=== PATIENT | male | born 1975 | race Caucasian/White ===

== ENCOUNTER 2018-10-07 16:12 | Emergency (ER) | payer OTHER, BC ==
[2018-10-07] MEDS ORDERED: Lidocaine 1% 50 ML MDV INJECT ONE (16:59)
[2018-10-07] MEDS ORDERED: Diphtheria,Pertussis(Acell),Tetanus Vaccine 0.5 ML Syringe IM ONE (16:59)
--- NOTE | 2018-10-07 17:00 | EDM.PDOC ---
ED HPI GENERAL MEDICAL PROBLEM - General Chief Complaint: Eye Problems Stated Complaint: HEAD INJURY Time Seen by Provider: 10/07/18 16:40 Source of Information: Reports: Patient, RN Notes Reviewed - History of Present Illness INITIAL COMMENTS - FREE TEXT/NARRATIVE: 43-year-old male got struck with some type of metal or piece of chain. He and his fellow workers were attempting to move a heavy object using some type of winch or chain withchain tighteners, something broke and then part of this chain apparatus struck his left face. He was wearing helmet with face shield. The goggles were knocked off of his face. Suffered a laceration injury to his left upper eyelid. There was a fair amount of bleeding initially but controlled with pressure. Left Face/Facial Pain Score (Numeric/FACES): 8 - Related Data Allergies Allergy/AdvReac Type Severity Reaction Status Date / Time No Known Allergies Allergy Verified 10/07/18 16:28 Past Medical History - Past Health History Medical/Surgical History: Denies Medical/Surgical History Social & Family History - Tobacco Use Smoking Status *Q: Never Smoker - Recreational Drug Use Recreational Drug Use: No ED ROS GENERAL - Review of Systems Review Of Systems: See Below Constitutional: Reports: No Symptoms HEENT: Denies: Dental Pain, Ear Pain, Eye Discharge, Eye Pain, Nose Pain Respiratory: Denies: Shortness of Breath Cardiovascular: Denies: Chest Pain GI/Abdominal: Denies: Nausea, Vomiting Musculoskeletal: Denies: Neck Pain Neurological: Denies: Dizziness, Headache, Numbness, Tingling, Weakness ED EXAM GENERAL W FULL EYE - Physical Exam Exam: See Below General Appearance: Alert, No Apparent Distress Eye Exam: Bilateral Eye: PERRL, Other (There is no visible injury to the globe of the left eye, there is no unusual area of conjunctival injection, blood, swelling or bruising visible. Both eyes are briskly reactive. Struck the motion is conjugate.) Conjunctiva & Sclera: Bilateral: Normal Appearance Cornea Exam: Bilateral: Normal Appearance Extraocular Movements: Bilateral: Intact Anterior Chamber: Bilateral: Normal Appearance Head: Other (There is bruising and swelling both superior lateral and inferior to the left orbit, no bony tenderness, very small superficial laceration of the left upper eyelid measuring less than 1 cm in length, non-gaping.) Neck: Normal Inspection, Supple Respiratory/Chest: No Respiratory Distress Neurological: Alert, Oriented Skin Exam: Warm, Dry, Normal Color Course - Vital Signs Last Recorded V/S: Last Vital Signs Temp 98.7 F 10/07/18 16:22 Pulse 88 10/07/18 16:22 Resp 17 10/07/18 16:22 BP 151/94 H 10/07/18 16:22 Pulse Ox 99 10/07/18 16:22 - Orders/Labs/Meds Orders: Active Orders 24 hr Category Date Time Status Vaccines to be Administered [RC] PER UNIT ROUTINE Care 10/07/18 17:00 Active Meds: Medications Discontinued Medications Generic Name Dose Route Start Last Admin Trade Name Freq PRN Reason Stop Dose Admin Diphtheria/Tetanus/Acell Pertussis 0.5 ml 10/07/18 16:59 10/07/18 17:24 Adacel IM 10/07/18 17:00 0.5 ml .ONCE ONE Administration Lidocaine HCl 50 ml 10/07/18 16:59 Xylocaine 1% INJECT 10/07/18 17:00 ONETIME ONE Departure - Departure Time of Disposition: 17:35 Disposition: Home, Self-Care 01 Condition: Fair Clinical Impression: Contusion of face Qualifiers: Encounter type: initial encounter Qualified Code(s): S00.83XA - Contusion of other part of head, initial encounter Eyelid laceration Qualifiers: Encounter type: initial encounter Laterality: left Qualified Code(s): S01.112A - Laceration without foreign body of left eyelid and periocular area, initial encounter - Discharge Information Instructions: Contusion, [id number], Laceration Care, Adult, [id number] Forms: ED Department Discharge Additional Instructions: Ice packs and elevation as needed for swelling, there is already bruising developing around your left eye, that will worsen over the next day or 2 and than take about 8-10 days to go away. Tylenol every 6-8 hours if needed for discomfort. The laceration of your left upper eyelid is very small, shallow and non-gaping, stitches not required. Apply a small amount of antibiotic ointment 2 -3 times daily. Have Rechecked any sign of infection. Return to ED as needed if symptoms worsening in any way. Follow up with your regular eye doctor as needed. - My Orders Last 24 Hours: My Active Orders 10/07/18 17:00 Vaccines to be Administered [RC] PER UNIT ROUTINE - Assessment/Plan Last 24 Hours: My Active Orders 10/07/18 17:00 Vaccines to be Administered [RC] PER UNIT ROUTINE
== END 2018-10-07 17:45 | disposition home or self-care (01) ==
LOC: JD.ED 16:12
DX: S01.112A Laceration without foreign body of left eyelid and periocular area, initial encounter (principal); Z23 Encounter for immunization; W22.8XXA Striking against or struck by other objects, initial encounter
CPT/HCPCS: 90471; 90700; 99282; 99283

== ENCOUNTER 2020-01-12 16:25 | Emergency (ER) | payer SELFPAY ==
[2020-01-12] MEDS ORDERED: Sodium Chloride 0.9% 10 ML Syringe FLUSH PRN ×2 (16:46→16:50)
[2020-01-12] MEDS ORDERED: HYDROmorphone 1 MG/ML Syringe IVPUSH ONE (16:48)
[2020-01-12] MEDS ORDERED: Iopamidol 755 Mg/ML 100 ML Bottle IVPUSH ONE (16:50)
[2020-01-12] MEDS ORDERED: Sodium Chloride 0.9% 45 ML IV SCH (17:00)
--- NOTE | 2020-01-12 18:02 | CT ---
CT chest Technique: Multiple axial sections through the chest were obtained. Intravenous contrast was utilized. Study performed as a pulmonary angiogram protocol. Comparison: No prior chest imaging. Findings: Pulmonary arteries are not well opacified. No filling defects are seen within the main or segmental branches. Smaller subsegmental pulmonary emboli could easily be missed. Thoracic aorta shows no aneurysm. No dissection is seen. Visualized upper abdominal structures shows nothing acute. No pericardial thickening is seen. Mild coronary artery calcification appears to be present. Mediastinum and hilar region show no adenopathy. Areas of parenchymal density are noted within both lung bases which are worse on the left side. Uncertain how much of this could represent atelectasis versus pneumonia if patient has infectious symptoms. Upper lungs are clear. Very small left-sided pleural effusion is seen. Impression: 1. Suboptimal pulmonary artery opacification. No larger pulmonary emboli within the main or segmental branches are seen. Smaller subsegmental pulmonary emboli could easily be missed. 2. Minimal left-sided pleural effusion. 3. Parenchymal densities within both lung bases, worse on the left side. As mentioned above, uncertain how much of this represents pneumonia versus atelectasis. 4. No other acute finding is appreciated. Diagnostic code #3 This report was dictated in MDT
--- NOTE | 2020-01-12 18:10 | EDM.PDOC ---
ED HPI GENERAL MEDICAL PROBLEM - General Chief Complaint: Chest Pain Stated Complaint: CHEST PAIN X 2 DAYS Time Seen by Provider: 01/12/20 16:37 Source of Information: Reports: Patient History Limitations: Reports: No Limitations - History of Present Illness INITIAL COMMENTS - FREE TEXT/NARRATIVE: The patient presents with left sided chest pain and shortness of breath. This has been going on since yesterday. He says he has been out late for a few nights. He went to bed early Sunday morning feeling fine and then Sunday he woke up with the pain in the left chest and in his stomach at times. The pain did come and go but no it is more constant. He has no fever, chills , cough, congestion, runny nose, nausea or vomiting. He has no history of heart problems. He does not smoke. He has no history of hypertension, hypercholesterolemia or diabetes. He was told at one time he may have a murmur. He does have some shortness of breath at times. Onset: Gradual Duration: Day(s): (Yesterday) Location: Reports: Chest Quality: Reports: Sharp Severity: Severe Improves with: Reports: Immobilization Worsens with: Reports: Movement Context: Denies: Trauma Associated Symptoms: Reports: Chest Pain, Shortness of Breath. Denies: Cough, Fever/Chills, Headaches, Nausea/Vomiting Left Chest Pain Score (Numeric/FACES): 8 - Related Data Allergies Allergy/AdvReac Type Severity Reaction Status Date / Time No Known Allergies Allergy Verified 01/12/20 16:38 Home Meds: Home Meds Azithromycin [Zithromax] 250 mg PO DAILY #6 tab 01/12/20 [Rx] Hydrocodone/Acetaminophen [Hydrocodone-Acetamin 5-325 mg] 1 - 2 each PO Q6HR PRN #15 tablet 01/12/20 [Rx] Past Medical History - Past Health History Medical/Surgical History: Denies Medical/Surgical History Cardiovascular History: Reports: Heart Murmur - Past Surgical History GI Surgical History: Reports: Hernia Repair/Other Social & Family History - Tobacco Use Smoking Status *Q: Never Smoker Second Hand Smoke Exposure: No - Caffeine Use Caffeine Use: Reports: None - Recreational Drug Use Recreational Drug Use: No ED ROS GENERAL - Review of Systems Review Of Systems: See Below Constitutional: Reports: No Symptoms HEENT: Reports: No Symptoms Respiratory: Reports: Shortness of Breath Cardiovascular: Reports: Chest Pain Endocrine: Reports: No Symptoms GI/Abdominal: Reports: Abdominal Pain. Denies: Nausea, Vomiting : Reports: No Symptoms Musculoskeletal: Reports: No Symptoms Skin: Reports: No Symptoms ED EXAM, GENERAL - Physical Exam Exam: See Below Exam Limited By: No Limitations General Appearance: Alert, No Apparent Distress Ears: Normal External Exam Nose: Normal Inspection Head: Atraumatic, Normocephalic Neck: Normal Inspection Respiratory/Chest: No Respiratory Distress, Lungs Clear, Normal Breath Sounds Cardiovascular: Regular Rate, Rhythm, No Edema, No Murmur GI/Abdominal: Soft, Non-Tender, No Organomegaly, No Mass Back Exam: Normal Inspection Extremities: Normal Inspection EKG INTERPRETATION EKG Date: 01/12/20 Time: 17:01 Rhythm: Other (Sinus tachycardia) Rate (Beats/Min): 117 [place]: Normal P-Wave: Present QRS: Normal ST-T: Normal QT: Normal Course - Vital Signs Last Recorded V/S: Last Vital Signs Temp 99.5 F 01/12/20 16:35 Pulse 122 H 01/12/20 16:35 Resp 14 01/12/20 16:35 BP 160/104 H 01/12/20 16:35 Pulse Ox 95 01/12/20 16:35 - Orders/Labs/Meds Orders: Active Orders 24 hr Category Date Time Status Cardiac Monitoring [RC] . DIRECTED Care 01/12/20 16:46 Active EKG Documentation Completion [RC] STAT Care 01/12/20 16:47 Active Peripheral IV Care [RC] . DIRECTED Care 01/12/20 16:47 Active CORONAVIRUS COVID-19 PCR [facility] 01/12/20 18:31 Ordered Sodium Chloride 0.9% [Normal Saline] 45 ml Med 01/12/20 17:00 Active IV ASDIRECTED Sodium Chloride 0.9% [Saline Flush] Med 01/12/20 16:46 Active 10 ml FLUSH ASDIRECTED PRN Sodium Chloride 0.9% [Saline Flush] Med 01/12/20 16:50 Active 10 ml FLUSH ONETIME PRN Peripheral IV Insertion Adult [OM.PC] Stat Oth 01/12/20 16:46 Ordered Medication Orders Sodium Chloride (Normal Saline) 45 mls @ 40 mls/hr IV ASDIRECTED MINI Last Admin: 01/12/20 17:35 Dose: 40 mls/hr Sodium Chloride (Saline Flush) 10 ml FLUSH ASDIRECTED PRN PRN Reason: Keep Vein Open Last Admin: 01/12/20 17:35 Dose: 10 ml Sodium Chloride (Saline Flush) 10 ml FLUSH ONETIME PRN PRN Reason: Keep Vein Open Labs: Laboratory Tests 01/12/20 01/12/20 Range/Units 17:00 17:00 WBC 10.10 H (4.23-9.07) K/mm3 RBC 5.41 (4.63-6.08) M/mm3 Hgb 16.4 (13.7-17.5) gm/dl Hct 45.3 (40.1-51.0) % MCV 83.7 (79.0-92.2) fl MCH 30.3 (25.7-32.2) pg MCHC 36.2 H (32.2-35.5) g/dl RDW Std Deviation 35.9 (35.1-43.9) fL Plt Count 197 (163-337) K/mm3 MPV 9.5 (9.4-12.3) fl Neut % (Auto) 73.7 H (34.0-67.9) % Lymph % (Auto) 14.3 L (21.8-53.1) % Maury % (Auto) 11.0 (5.3-12.2) % Eos % (Auto) 0.5 L (0.8-7.0) Baso % (Auto) 0.2 (0.1-1.2) % Neut # (Auto) 7.45 H (1.78-5.38) K/mm3 Lymph # (Auto) 1.44 (1.32-3.57) K/mm3 Maury # (Auto) 1.11 H (0.30-0.82) K/mm3 Eos # (Auto) 0.05 (0.04-0.54) K/mm3 Baso # (Auto) 0.02 (0.01-0.08) K/mm3 Manual Slide Review Normal smear Sodium 138 (136-145) mEq/L Potassium 3.9 (3.5-5.1) mEq/L Chloride 101 (98-107) mEq/L Carbon Dioxide 26 (21-32) mEq/L Anion Gap 14.9 (5-15) BUN 14 (7-18) mg/dL Creatinine 1.3 (0.7-1.3) mg/dL Est Cr Clr Drug Dosing 80.42 mL/min Estimated GFR (MDRD) > 60 (>60) mL/min BUN/Creatinine Ratio 10.8 L (14-18) Glucose 119 H (74-106) mg/dL Calcium 9.4 (8.5-10.1) mg/dL Total Bilirubin 4.6 H (0.2-1.0) mg/dL AST 21 (15-37) U/L ALT 36 (16-63) U/L Alkaline Phosphatase 80 (46-116) U/L Troponin I < 0.017 (0.00-0.056) ng/mL Total Protein 7.8 (6.4-8.2) g/dl Albumin 4.1 (3.4-5.0) g/dl Globulin 3.7 gm/dL Albumin/Globulin Ratio 1.1 (1-2) Meds: Medications Generic Name Dose Route Start Last Admin Trade Name Chris PRN Reason Stop Dose Admin Sodium Chloride 45 mls @ 40 mls/hr 01/12/20 17:00 01/12/20 17:35 Normal Saline IV 40 mls/hr ASDIRECTED MINI Administration Sodium Chloride 10 ml 01/12/20 16:46 01/12/20 17:35 Saline Flush FLUSH 10 ml ASDIRECTED PRN Administration Keep Vein Open Sodium Chloride 10 ml 01/12/20 16:50 Saline Flush FLUSH ONETIME PRN Keep Vein Open Discontinued Medications Generic Name Dose Route Start Last Admin Trade Name Chris PRN Reason Stop Dose Admin Hydromorphone HCl 1 mg 01/12/20 16:48 01/12/20 17:41 Dilaudid IVPUSH 01/12/20 16:49 1 mg ONETIME ONE Administration Iopamidol 100 ml 01/12/20 16:50 01/12/20 17:35 [id number] (76%) IVPUSH 01/12/20 16:51 100 ml ONETIME ONE Administration - Re-Assessments/Exams Free Text/Narrative Re-Assessment/Exam: 01/12/20 18:11 I ordered an IV saline lock, EKG, CT angio of her chest, labs and dilaudid for pain. His EKG shows a sinus tachycardia at a rate of 117. His CT shows suboptimal pulmonary artery opacification. No larger pulmonary emboli within the main or segmental branches are seen. Smaller subsegmental pulmonary emboli could easily be missed. Minimal left-sided pleural effusion. Parenchymal densities within both lung bases, worse on the left side. Uncertain how much of this represents pneumonia versus atelectasis. 01/12/20 18:33 He says he has no cough but he did have a subjective fever yesterday. I asked him again if he traveled recently and he said last week he was in [facility]. I will do a COVID screen on him. I will start some zithromax for the suspected pneumonia on CT. Departure - Departure Time of Disposition: 18:40 Disposition: Home, Self-Care 01 Condition: Good Clinical Impression: Pleurisy Pneumonia Qualifiers: Pneumonia type: due to unspecified organism Laterality: left Lung location: lower lobe of lung Qualified Code(s): J18.9 - Pneumonia, unspecified organism Prescriptions: Hydrocodone/Acetaminophen [Hydrocodone-Acetamin 5-325 mg] 1 - 2 each PO Q6HR PRN #15 tablet PRN Reason: Pain Azithromycin [Zithromax] 250 mg PO DAILY #6 tab Referrals: Jaymie Art PA-C [Primary Care Provider] - 1 Week Forms: ED Department Discharge Additional Instructions: Take the zithromax 2 pills on day 1 and then 1 pill on day 2 through 5. Take motrin or tylenol for pain. If that does not help try the hydrocodone. Please return if you are worse. Sepsis Event Note (ED) - Evaluation Sepsis Screening Result: No Definite Risk - Focused Exam Vital Signs: Vital Signs Temp Pulse Resp BP Pulse Ox 01/12/20 16:35 99.5 F 122 H 14 160/104 H 95 - My Orders Last 24 Hours: My Active Orders 01/12/20 16:46 Cardiac Monitoring [RC] . DIRECTED Sodium Chloride 0.9% [Saline Flush] 10 ml FLUSH ASDIRECTED PRN Peripheral IV Insertion Adult [OM.PC] Stat 01/12/20 16:47 EKG Documentation Completion [RC] STAT Peripheral IV Care [RC] . DIRECTED 01/12/20 16:50 Sodium Chloride 0.9% [Saline Flush] 10 ml FLUSH ONETIME PRN 01/12/20 17:00 Sodium Chloride 0.9% [Normal Saline] 45 ml IV ASDIRECTED 01/12/20 18:31 CORONAVIRUS COVID-19 PCR [facility] Urgent - Assessment/Plan Last 24 Hours: My Active Orders 01/12/20 16:46 Cardiac Monitoring [RC] . DIRECTED Sodium Chloride 0.9% [Saline Flush] 10 ml FLUSH ASDIRECTED PRN Peripheral IV Insertion Adult [OM.PC] Stat 01/12/20 16:47 EKG Documentation Completion [RC] STAT Peripheral IV Care [RC] . DIRECTED 01/12/20 16:50 Sodium Chloride 0.9% [Saline Flush] 10 ml FLUSH ONETIME PRN 01/12/20 17:00 Sodium Chloride 0.9% [Normal Saline] 45 ml IV ASDIRECTED 01/12/20 18:31 CORONAVIRUS COVID-19 PCR PHL Urgent
== END 2020-01-12 19:30 | disposition home or self-care (01) ==
LOC: JD.ED 16:25
DX: J18.9 Pneumonia, unspecified organism (principal); R09.1 Pleurisy
CPT/HCPCS: 36415; 71275; 80053; 84484; 85025; 87635; 93005; 96374; 99285; J1170; J7050; Q9967; 93010; 99284; U0002

== ENCOUNTER 2020-06-02 17:51 | Emergency (ER) | payer OTHER ==
[2020-06-02] MEDS ORDERED: Sodium Chloride 0.9% 10 ML Syringe FLUSH PRN (20:00)
[2020-06-02] MEDS ORDERED: Sodium Chloride 0.9% 45 ML IV SCH (20:00)
[2020-06-02] MEDS ORDERED: Iopamidol 755 Mg/ML 100 ML Bottle IVPUSH ONE (20:00)
[2020-06-02] MEDS: Sodium Chloride 0.9% 10 ML Syringe FLUSH PRN ×2 (20:06→20:27)
[2020-06-02] MEDS ORDERED: Rivaroxaban 15 MG Tab PO ONE (20:56)
--- NOTE | 2020-06-02 22:17 | EDM.PDOC ---
ED HPI GENERAL MEDICAL PROBLEM - General Chief Complaint: Respiratory Problem Stated Complaint: SENT OVER FROM [facility] Time Seen by Provider: 06/02/20 19:40 Source of Information: Reports: Patient, RN Notes Reviewed History Limitations: Reports: No Limitations - History of Present Illness INITIAL COMMENTS - FREE TEXT/NARRATIVE: Patient is a 45-year-old male presenting to the emergency department with complaints of pain and swelling to his left lower extremity as well as shortness of breath over the last few weeks. He was seen at the [facility] prior to coming here and there was concern that he could have DVT with possible PEs. He describes increasing shortness of breath with exertion or activity. He denies any pain in his chest. He started noticing what felt like leg cramps in his right lower extremity on Sunday of this week. Since that time he has been getting progressively worse swelling in his lower extremity as well as discomfort. He denies any history of blood clots or clotting disorders. Vital signs on triage were stable. Temperature 98.2, pulse 92, respiratory rate 16, blood pressure 162/135, oxygen saturation 93%. Since triage, he has been maintaining oxygen saturation at 95 to 98% on room air. Left Leg Pain Score (Numeric/FACES): 6 - Related Data Allergies Allergy/AdvReac Type Severity Reaction Status Date / Time No Known Allergies Allergy Verified 06/02/20 18:39 Home Meds: Home Meds Rivaroxaban [Xarelto] 1 each PO ASDIRECTED #1 tab.ds.pk 06/02/20 [Rx] Past Medical History - Past Health History Medical/Surgical History: Denies Medical/Surgical History Cardiovascular History: Reports: Heart Murmur - Past Surgical History GI Surgical History: Reports: Hernia Repair/Other Social & Family History - Tobacco Use Tobacco Use Status *Q: Never Tobacco User - Caffeine Use Caffeine Use: Reports: None ED ROS GENERAL - Review of Systems Review Of Systems: See Below Constitutional: Reports: No Symptoms. Denies: Fever, Chills, Weakness HEENT: Reports: No Symptoms Respiratory: Reports: Shortness of Breath. Denies: Pleuritic Chest Pain, Cough Cardiovascular: Reports: Dyspnea on Exertion, Edema (Right lower extremity). Denies: Chest Pain, Lightheadedness, Syncope Endocrine: Reports: No Symptoms GI/Abdominal: Reports: No Symptoms : Reports: No Symptoms Musculoskeletal: Reports: No Symptoms Skin: Reports: No Symptoms Neurological: Reports: No Symptoms Psychiatric: Reports: No Symptoms Hematologic/Lymphatic: Reports: No Symptoms Immunologic: Reports: No Symptoms ED EXAM, GENERAL - Physical Exam Exam: See Below Exam Limited By: No Limitations General Appearance: Alert, WD/WN, No Apparent Distress Respiratory/Chest: No Respiratory Distress, Lungs Clear, Normal Breath Sounds, No Accessory Muscle Use, Chest Non-Tender Cardiovascular: Normal Peripheral Pulses, Regular Rate, Rhythm, No Edema, No Gallop, No JVD, No Murmur, No Rub GI/Abdominal: Normal Bowel Sounds, Soft, Non-Tender, No Organomegaly, No Distention, No Abnormal Bruit, No Mass Extremities: Other (Edema and tenderness to palpation of the left posterior calf. Pedal pulses are 2+. No redness or warmth present.) Neurological: Alert, Oriented, CN II-XII Intact, Normal Cognition, Normal Gait, Normal Reflexes, No Motor/Sensory Deficits Psychiatric: Normal Affect, Normal Mood Skin Exam: Warm, Dry, Intact, Normal Color, No Rash #1 Interpretation EKG Date: 06/02/20 Time: 21:22 Rhythm: NSR Rate (Beats/Min): 81 [place]: Normal P-Wave: Present QRS: Normal ST-T: Normal QT: Normal EKG Interpretation Comments: Sinus rhythm at 80 bpm Diffuse early repolarization pattern Consider left atrial hypertrophy Otherwise normal ECG EKG interpreted by Dr. Kenzie PULLIAM Course - Vital Signs Last Recorded V/S: Last Vital Signs Temp 98.2 F 06/02/20 18:35 Pulse 92 06/02/20 18:35 Resp 16 06/02/20 18:35 BP 162/135 H 06/02/20 18:35 Pulse Ox 93 L 06/02/20 18:35 - Orders/Labs/Meds Orders: Active Orders 24 hr Category Date Time Status EKG Documentation Completion [RC] STAT Care 06/02/20 19:57 Active Peripheral IV Care [RC] . DIRECTED Care 06/02/20 19:56 Active Chest PE [Ang Chest] [CT] Stat Exams 06/02/20 19:56 Taken VL Duplex Lwr Ext Veins Ltd Lt [US] Stat Exams 06/02/20 19:55 Taken Sodium Chloride 0.9% [Normal Saline] 45 ml Med 06/02/20 20:00 Active IV ASDIRECTED Sodium Chloride 0.9% [Saline Flush] Med 06/02/20 19:55 Active 10 ml FLUSH ASDIRECTED PRN Sodium Chloride 0.9% [Saline Flush] Med 06/02/20 20:00 Active 10 ml FLUSH ONETIME PRN Peripheral IV Insertion Adult [OM.PC] Stat Oth 06/02/20 19:55 Ordered Medication Orders Sodium Chloride (Normal Saline) 45 mls @ 40 mls/hr IV ASDIRECTED MINI Last Admin: 06/02/20 20:27 Dose: 40 mls/hr Documented by: MILAGRO Sodium Chloride (Saline Flush) 10 ml FLUSH ASDIRECTED PRN PRN Reason: Keep Vein Open Last Admin: 06/02/20 20:27 Dose: 10 ml Documented by: Admin: 06/02/20 20:06 Dose: 10 ml Documented by: PAWEL Sodium Chloride (Saline Flush) 10 ml FLUSH ONETIME PRN PRN Reason: Keep Vein Open Last Admin: 06/02/20 21:34 Dose: 10 ml Documented by: PAWEL Labs: Laboratory Tests 06/02/20 06/02/20 06/02/20 Range/Units 20:00 20:00 20:00 WBC 7.07 (4.23-9.07) K/mm3 RBC 5.73 (4.63-6.08) M/mm3 Hgb 17.2 (13.7-17.5) gm/dl Hct 47.7 (40.1-51.0) % MCV 83.2 (79.0-92.2) fl MCH 30.0 (25.7-32.2) pg MCHC 36.1 H (32.2-35.5) g/dl RDW Std Deviation 38.0 (35.1-43.9) fL Plt Count 212 (163-337) K/mm3 MPV 9.6 (9.4-12.3) fl Neut % (Auto) 61.8 (34.0-67.9) % Lymph % (Auto) 26.0 (21.8-53.1) % [place] % (Auto) 9.9 (5.3-12.2) % Eos % (Auto) 1.6 (0.8-7.0) Baso % (Auto) 0.4 (0.1-1.2) % Neut # (Auto) 4.37 (1.78-5.38) K/mm3 Lymph # (Auto) 1.84 (1.32-3.57) K/mm3 [place] # (Auto) 0.70 (0.30-0.82) K/mm3 Eos # (Auto) 0.11 (0.04-0.54) K/mm3 Baso # (Auto) 0.03 (0.01-0.08) K/mm3 PT (9.7-12.0) SECONDS INR APTT (21.7-31.4) SECONDS D-Dimer, Quantitative 4.28 H (0.19-0.50) mg/L Sodium 137 (136-145) mEq/L Potassium 4.2 (3.5-5.1) mEq/L Chloride 103 (98-107) mEq/L Carbon Dioxide 23 (21-32) mEq/L Anion Gap 15.2 H (5-15) BUN 26 H (7-18) mg/dL Creatinine 1.5 H (0.7-1.3) mg/dL Est Cr Clr Drug Dosing 68.98 mL/min Estimated GFR (MDRD) 51 (>60) mL/min BUN/Creatinine Ratio 17.3 (14-18) Glucose 91 (74-106) mg/dL Calcium 9.3 (8.5-10.1) mg/dL Total Bilirubin 2.9 H (0.2-1.0) mg/dL AST 16 (15-37) U/L ALT 32 (16-63) U/L Alkaline Phosphatase 87 (46-116) U/L Troponin I < 0.017 (0.00-0.056) ng/mL C-Reactive Protein 2.2 H* (<1.0) mg/dL Total Protein 7.6 (6.4-8.2) g/dl Albumin 4.0 (3.4-5.0) g/dl Globulin 3.6 gm/dL Albumin/Globulin Ratio 1.1 (1-2) 06/02/20 Range/Units 20:27 WBC (4.23-9.07) K/mm3 RBC (4.63-6.08) M/mm3 Hgb (13.7-17.5) gm/dl Hct (40.1-51.0) % MCV (79.0-92.2) fl MCH (25.7-32.2) pg MCHC (32.2-35.5) g/dl RDW Std Deviation (35.1-43.9) fL Plt Count (163-337) K/mm3 MPV (9.4-12.3) fl Neut % (Auto) (34.0-67.9) % Lymph % (Auto) (21.8-53.1) % [place] % (Auto) (5.3-12.2) % Eos % (Auto) (0.8-7.0) Baso % (Auto) (0.1-1.2) % Neut # (Auto) (1.78-5.38) K/mm3 Lymph # (Auto) (1.32-3.57) K/mm3 [place] # (Auto) (0.30-0.82) K/mm3 Eos # (Auto) (0.04-0.54) K/mm3 Baso # (Auto) (0.01-0.08) K/mm3 PT 12.4 H (9.7-12.0) SECONDS INR 1.16 APTT 27.4 (21.7-31.4) SECONDS D-Dimer, Quantitative (0.19-0.50) mg/L Sodium (136-145) mEq/L Potassium (3.5-5.1) mEq/L Chloride (98-107) mEq/L Carbon Dioxide (21-32) mEq/L Anion Gap (5-15) BUN (7-18) mg/dL Creatinine (0.7-1.3) mg/dL Est Cr Clr Drug Dosing mL/min Estimated GFR (MDRD) (>60) mL/min BUN/Creatinine Ratio (14-18) Glucose (74-106) mg/dL Calcium (8.5-10.1) mg/dL Total Bilirubin (0.2-1.0) mg/dL AST (15-37) U/L ALT (16-63) U/L Alkaline Phosphatase (46-116) U/L Troponin I (0.00-0.056) ng/mL C-Reactive Protein (<1.0) mg/dL Total Protein (6.4-8.2) g/dl Albumin (3.4-5.0) g/dl Globulin gm/dL Albumin/Globulin Ratio (1-2) Meds: Medications Generic Name Dose Route Start Last Admin Trade Name Freq PRN Reason Stop Dose Admin Sodium Chloride 45 mls @ 40 mls/hr 06/02/20 20:00 06/02/20 20:27 Normal Saline IV 40 mls/hr ASDIRECTED MINI Administration Sodium Chloride 10 ml 06/02/20 19:55 06/02/20 20:27 Saline Flush FLUSH 10 ml ASDIRECTED PRN Administration Keep Vein Open Sodium Chloride 10 ml 06/02/20 20:00 06/02/20 21:34 Saline Flush FLUSH 10 ml ONETIME PRN Administration Keep Vein Open Discontinued Medications Generic Name Dose Route Start Last Admin Trade Name Freq PRN Reason Stop Dose Admin Iopamidol 100 ml 06/02/20 20:00 06/02/20 20:26 Isovue-370 (76%) IVPUSH 06/02/20 20:01 100 ml ONETIME ONE Administration Rivaroxaban 15 mg 06/02/20 20:56 06/02/20 21:28 Xarelto PO 06/02/20 20:57 15 mg ONETIME ONE Administration - Re-Assessments/Exams Free Text/Narrative Re-Assessment/Exam: Patient is a 45-year-old male presenting to the emergency department with complaints of pain and edema to his left calf as well as increasing shortness of breath over the last 2 weeks. On exam, his left calf is notably larger than his right. It is tender to palpation. There is no redness or warmth. His oxygen saturation has been in the mid to upper 90s on room air. He is not tachycardic. Denies any chest pain. Given his shortness of breath and pain and swelling to his left calf, I am concerned that he could have DVT with embolization of clots to his lungs. I have ordered a CBC, CMP, CRP, D-dimer, troponin, EKG, CT angiogram of the chest, and a venous Doppler ultrasound of the left lower extremity. 06/02/20 21:00 Hematology was significant for D-dimer elevated at 4.28 and a CRP of 2.2. BUN 26, creatinine 1.5. CT angiogram of the chest shows large volume bilateral acute pulmonary emboli. No evidence of right heart strain. Is also a 1.9 cm oval-shaped opacity in the right middle lobe. Etiology uncertain. Possible inflammatory although it could be related to underlying pulmonary emboli/beginning lung infarct. Recommend follow-up chest CT in 1 month to reassess and exclude possibility of underlying lung nodule/mass. Results of the venous Doppler ultrasound are still pending; however, the either the presence or absence of a DVT will not change the treatment plan. We will start the patient on Xarelto. First dose of 50 mg will be given this evening. I will await results of the Venous Doppler ultrasound and then discuss discharge instructions with him. 06/02/20 22:18 Results the venous Doppler ultrasound shows a long segment acute DVT thrombosis beginning at the mid left superficial femoral vein extending into the low the knee deep veins. Patient has received his first dose of Xarelto. I will send prescription for 1 month supply Xarelto. He has seen NINFA Linn in the clinic in the past, however states it has been a while. I would recommend that he schedule an appointment for follow-up with her next week to make her aware of today's occurrences and for ongoing monitoring. She he will also need subsequent prescriptions for Xarelto. I advised that he should have a repeat CT angiogram of his chest done in 1 month to evaluate the 1.9 cm oval-shaped opacity that was visualized in the right middle lung. Patient is agreement with this plan. I am going to give him a note off from work for the remainder of the week and he can reassess early next week depending on how he is feeling. Discussed return precautions including chest pain or worsening shortness of breath is is always possibility could embolize another clot into his lungs. He verbalized understanding of this. Discharge instructions as documented. Departure - Departure Time of Disposition: 22:19 Disposition: Home, Self-Care 01 Condition: Good Clinical Impression: DVT (deep venous thrombosis) Qualifiers: DVT location: lower extremity Affected thrombotic vein of extremity: unspecified vein of extremity Chronicity: acute Laterality: left Qualified Code(s): I82.402 - Acute embolism and thrombosis of unspecified deep veins of left lower extremity Pulmonary embolism Qualifiers: Pulmonary embolism type: multiple subsegmental (without acute cor pulmonale) Qualified Code(s): I26.94 - Multiple subsegmental pulmonary emboli without acute cor pulmonale - Discharge Information *PRESCRIPTION DRUG MONITORING PROGRAM REVIEWED*: No *COPY OF PRESCRIPTION DRUG MONITORING REPORT IN PATIENT ALEXIA: No Prescriptions: Rivaroxaban [Xarelto] 1 each PO ASDIRECTED #1 tab.ds.pk Instructions: Pulmonary Embolism, Deep Vein Thrombosis Referrals: Jaymie Art PA-C [Primary Care Provider] - Forms: ED Department Discharge, ED Return to Work/School Form Additional Instructions: You were seen in the emergency department today for pain and swelling to your left lower leg as well as shortness of breath over the last few weeks. Your work-up included blood work, an EKG of your heart, CT angiogram of your chest, and an ultrasound of your left lower extremity. Results of your work-up show that you have a number of blood clots within your lungs, as well as a blood clot in your left lower leg. You have been started on Xarelto which is a blood thinner. Take this medication as prescribed. [facility]. Recommend that you call and schedule follow-up appoint with your primary care provider in 1 week to make her aware of tonight's events as well as for ongoing management of your Xarelto and follow-up imaging as needed. It is recommended that she have a repeat CT angiogram of your chest in 1 month. You should avoid activities that could result in injury as you are risk of bleeding while on a blood thinner is much higher. If you should experience chest pain or worsening of shortness of breath, you should return to the emergency department immediately. Sepsis Event Note (ED) - Evaluation Sepsis Screening Result: No Definite Risk - Focused Exam Vital Signs: Vital Signs Temp Pulse Resp BP Pulse Ox 06/02/20 18:35 98.2 F 92 16 162/135 H 93 L - My Orders Last 24 Hours: My Active Orders 06/02/20 19:55 VL Duplex Lwr Ext Veins Ltd Lt [US] Stat Sodium Chloride 0.9% [Saline Flush] 10 ml FLUSH ASDIRECTED PRN Peripheral IV Insertion Adult [OM.PC] Stat 06/02/20 19:56 Peripheral IV Care [RC] . DIRECTED Chest PE [Ang Chest] [CT] Stat 06/02/20 19:57 EKG Documentation Completion [RC] STAT 06/02/20 20:00 Sodium Chloride 0.9% [Normal Saline] 45 ml IV ASDIRECTED Sodium Chloride 0.9% [Saline Flush] 10 ml FLUSH ONETIME PRN - Assessment/Plan Last 24 Hours: My Active Orders 06/02/20 19:55 VL Duplex Lwr Ext Veins Ltd Lt [US] Stat Sodium Chloride 0.9% [Saline Flush] 10 ml FLUSH ASDIRECTED PRN Peripheral IV Insertion Adult [OM.PC] Stat 06/02/20 19:56 Peripheral IV Care [RC] . DIRECTED Chest PE [Ang Chest] [CT] Stat 06/02/20 19:57 EKG Documentation Completion [RC] STAT 06/02/20 20:00 Sodium Chloride 0.9% [Normal Saline] 45 ml IV ASDIRECTED Sodium Chloride 0.9% [Saline Flush] 10 ml FLUSH ONETIME PRN
--- NOTE | 2020-06-03 09:06 | CT ---
"Addendum created by Yandel Pearson MD on 06/02/2020 9:48 PM Central Time ([place] & [place]): THIS REPORT CONTAINS FINDINGS THAT MAY BE CRITICAL TO PATIENT CARE. The findings were verbally communicated via telephone conference with NAVJOT MACARIO at 9:48 PM BINDER ROLLER on 06/02/2020. The findings were acknowledged and understood. Initial Report created on 06/02/2020 9:44 PM Central Time ([place] & [place]): PROCEDURE INFORMATION: Exam: CT Angiography Chest With Contrast Exam date and time: 06/02/2020 8:08 PM Age: 45 years old Clinical indication: Shortness of breath and other: Left lower leg swelling TECHNIQUE: Imaging protocol: Computed tomographic angiography of the chest with intravenous contrast. 3D rendering (Not supervised by radiologist): MIP and/or 3D reconstructed images were created by the technologist. Radiation optimization: All CT scans at this facility use at least one of these dose optimization techniques: automated exposure control; mA and/or kV adjustment per patient size (includes targeted exams where dose is matched to clinical indication); or iterative reconstruction. COMPARISON: CT Ang Chest 01/12/2020 4:57 PM FINDINGS: Pulmonary arteries: There is large volume acute pulmonary emboli with emboli involving segmental and subsegmental branches all lobes bilaterally. Clot starts on the right in the distal right main pulmonary artery. Aorta: Unremarkable. No aortic aneurysm. No aortic dissection. Lungs: 1.9 cm oval-shaped opacity lateral right middle lobe. Minimal atelectasis at the lung bases. Pleural space: Unremarkable. No pneumothorax. No pleural effusion. Heart: No definite evidence for right heart strain with RV to LV ratio less than 1. Lymph nodes: Unremarkable. No enlarged lymph nodes. DEVIKA RUSSELL | Final Radiology Report CONFIDENTIALITY STATEMENT This report is intended only for use by the referring physician, and only in accordance with law. If you received this in error, call [phone]. Page 2 of 2 Bones/joints: Unremarkable. No acute fracture. Soft tissues: Unremarkable. IMPRESSION: 1. Large volume bilateral acute pulmonary emboli. No evidence for right heart strain. 2. 1.9 cm oval-shaped opacity right middle lobe. Etiology uncertain. Possibly inflammatory although could be related to the underlying pulmonary emboli/beginning lung infarct. Recommend follow-up chest CT in 1 month to reassess and exclude the possibility of an underlying lung nodule/mass. Thank you for allowing us to participate in the care of your patient. Dictated and Authenticated by: Yandel Pearson MD 06/02/2020 9:44 PM Central Time ([place] & [place]) [facility]"
--- NOTE | 2020-06-03 09:12 | US ---
"Addendum created by Yandel Pearson MD on 06/02/2020 10:53 PM Central Time ([place] & [place]): THIS REPORT CONTAINS FINDINGS THAT MAY BE CRITICAL TO PATIENT CARE. The findings were verbally communicated via telephone conference with NAVJOT MACARIO at 10:52 PM REEL BLADE BENDER FURNACE TENDER on 06/02/2020. The findings were acknowledged and understood. Initial Report created on 06/02/2020 10:43 PM Central Time ([place] & [place]): PROCEDURE INFORMATION: Exam: US Duplex Left Lower Extremity Veins, Limited Exam date and time: 06/02/2020 9:09 PM Age: 45 years old Clinical indication: Edema, localized; Lower extremity, left TECHNIQUE: Imaging protocol: Real-time Duplex ultrasound of the Left Lower Extremity with 2-D aldridge scale, color Doppler flow and spectral waveform analysis with image documentation. Limited exam focused on the left lower extremity veins. COMPARISON: No relevant prior studies available. FINDINGS: Left deep veins: There is filling defect/thrombus beginning in the mid left superficial femoral vein extending into the popliteal vein and into the below the knee deep veins including the Peroneal and posterior tibial veins. Left superficial veins: Unremarkable. Saphenofemoral junction is patent without thrombus. Soft tissues: Unremarkable. IMPRESSION: Long segment acute deep venous thrombosis beginning in the mid left superficial femoral vein extending into the below the knee deep veins. DEVIKA RUSSELL | Final Radiology Report CONFIDENTIALITY STATEMENT This report is intended only for use by the referring physician, and only in accordance with law. If you received this in error, call [phone]. Page 2 of 2 Thank you for allowing us to participate in the care of your patient. Dictated and Authenticated by: Yandel Pearson MD 06/02/2020 10:43 PM Central Time ([place] & [place]) [facility]"
== END 2020-06-02 22:40 | disposition home or self-care (01) ==
LOC: JD.ED 17:51
DX: I82.402 Acute embolism and thrombosis of unspecified deep veins of left lower extremity (principal); I26.94 Multiple subsegmental thrombotic pulmonary emboli without acute cor pulmonale
CPT/HCPCS: 36415; 71275; 80053; 84484; 85025; 85379; 85610; 85730; 86140; 93005; 93971; 99285; A9270; Q9967; 93010; 99284